=== PATIENT | male | born 1960 ===

== ENCOUNTER 2017-06-08 10:39 | Emergency (ER) | payer OTHER ==
[2017-06-08 10:51] VITALS: BMI 26.6
--- NOTE | 2017-06-08 11:26 | C.PDOC ---
History Of Present Illness 57 yr old male presents to the ER with complaints of chest pain and SOB worsening for the last week. Patient reports he feels like a left sided heaviness. Denies fever, nausea, vomiting, weakness or numbness. Time Seen by Provider: 06/08/17 11:19 Chief Complaint (Nursing): Shortness Of Breath History Per: Patient History/Exam Limitations: no limitations Onset/Duration Of Symptoms: Gradual (last week ) Current Symptoms Are (Timing): Still Present Past Medical History Reviewed: Historical Data, Nursing Documentation, Vital Signs Vital Signs: Last Vital Signs Temp 97.7 F 06/08/17 13:03 Pulse 75 06/08/17 13:03 Resp 16 06/08/17 13:03 BP 127/90 06/08/17 13:03 Pulse Ox 96 06/08/17 13:03 Family History: States: No Known Family Hx - Social History Hx Alcohol Use: No Hx Substance Use: No - Immunization History Hx Tetanus Toxoid Vaccination: No Hx Influenza Vaccination: No Hx Pneumococcal Vaccination: No Review Of Systems Except As Marked, All Systems Reviewed And Found Negative. Constitutional: Negative for: Fever Cardiovascular: Positive for: Chest Pain Respiratory: Positive for: Shortness of Breath Gastrointestinal: Negative for: Nausea, Vomiting Neurological: Negative for: Weakness, Numbness Physical Exam - Physical Exam Appears: Non-toxic, No Acute Distress Skin: Warm, Dry Head: Atraumatic, Normacephalic Eye(s): bilateral: Normal Inspection, PERRL, EOMI Oral Mucosa: Moist Chest: Symmetrical, No Tenderness Cardiovascular: Rhythm Regular, No Murmur Respiratory: Normal Breath Sounds, No Rales, No Rhonchi, No Stridor, No Wheezing Gastrointestinal/Abdominal: Normal Exam, Soft, No Tenderness, No Guarding, No Rebound Extremity: Normal ROM, No Swelling Neurological/Psych: Oriented x3, Normal Speech, Normal Motor ED Course And Treatment - Laboratory Results Result Diagrams: 06/08/17 11:58 06/08/17 11:58 ECG: Interpreted By Me, Viewed By Me ECG Rhythm: Sinus Rhythm ECG Interpretation: Normal Rate From EC (BPM ) O2 Sat by Pulse Oximetry: 100 (RA ) Pulse Ox Interpretation: Normal - Other Rad CXR X-Ray: Viewed By Me, Read By Radiologist Interpretation: PROCEDURE: CHEST RADIOGRAPH, 1 VIEW. HISTORY: chest pain. COMPARISON: No prior study available comparison. FINDINGS: LUNGS: No acute infiltrates. Small approximately 7.7 mm elliptical shaped density right lower lung field overlying the right anterior 6 rib probably and another more vague elliptical shaped density left lower lung field near the CP angle. Findings probably represent nipple shadow artifact however nonemergent CT scan of the chest recommended to confirm and exclude other pathology. PLEURA: No pneumothorax or pleural fluid seen. CARDIOVASCULAR: Normal. OSSEOUS STRUCTURES: No significant abnormalities. VISUALIZED UPPER ABDOMEN: Normal. OTHER FINDINGS: None. IMPRESSION: No acute infiltrates. Small approximately 7.7 mm elliptical shaped density right lower lung field overlying the right anterior 6 rib probably and another more vague elliptical shaped density left lower lung field near the CP angle. Findings could represent confluence of shadows or possibly nipple shadow artifact however nonemergent CT scan of the chest recommended to confirm and exclude other pathology. Note this report was placed in PA review folder followup Medical Decision Making Medical Decision Making: cp r/o acs PLAN: * CXR * EKG * Troponin * D-Dimer * CBC * CMP * * 1250: pt reassesed. states all symptoms resolved. requested pt be obs in hospital for cp. pt refuses, states "i need to go home". ekg unremarkable. trop neg x 1 with 1 week of pain. pt states prefers outpt management. return precautions advised. pt notified of incidental finding on ct Disposition - Disposition Referrals: Lars Pelaez MD [Staff Provider] - Disposition: HOME/ ROUTINE Disposition Time: 13:16 Condition: STABLE Additional Instructions: please follow up with your doctor/specialist. return ot er with worsening symptoms or concerns please discuss the results of your chest xray michael resendez doctor you may require a ct of your chest Instructions: Chest Pain (ED), Dyspnea (ED) - Clinical Impression Clinical Impression: Dyspnea, Chest pain - Scribe Statement The provider has reviewed the documentation as recorded by the Socorroibandrey Jaramillo Provider Attestation: All medical record entries made by the Socorroibandrey were at my direction and personally dictated by me. I have reviewed the chart and agree that the record accurately reflects my personal performance of the history, physical exam, medical decision making, and the department course for this patient. I have also personally directed, reviewed, and agree with the discharge instructions and disposition.
[2017-06-08 12:02] LABS: BASO % 0.4 % (0.0-2.0); EOS # 0.1 K/uL (0.0-0.7); EOS % 1.8 % (0.0-4.0); LYMPH # 1.6 K/uL (1.0-4.3); LYMPH % 28.7 % (20.0-40.0); MEAN CELL VOLUME 92.1 fL (80.0-94.0); MEAN CORPUSCULAR HGB CONC 33.7 g/dL (33.0-37.0); MEAN PLATELET VOLUME 8.3 fL (7.2-11.7); MONO # 0.6 K/uL (0.0-0.8); MONO % 10.3 % (0.0-10.0); NEUT # 3.3 K/uL (1.8-7.0); NEUT % 58.8 % (50.0-75.0); RBC 4.84 Mil/uL (4.40-5.90); RED CELL DISTRIBUTION WIDTH 12.7 % (11.5-14.5); WHITE BLOOD COUNT 5.7 K/uL (4.8-10.8)
[2017-06-08 12:10] LABS: ALBUMIN 4.4 g/dL (3.5-5.0)
[2017-06-08 12:13] LABS: ALB/GLOB RATIO 1.2 (1.0-2.1); AST/SGOT 23 U/L (17-59); GFR AFRICAN-AMERICAN > 60; GFR NON-AFRICAN AMERICAN > 60
[2017-06-08 12:14] LABS: ALT/SGPT 30 U/L (21-72); BLOOD UREA NITROGEN 7 mg/dL (9-20); CALCIUM 8.9 mg/dl (8.6-10.4)
--- NOTE | 2017-06-08 12:20 | RAD ---
PROCEDURE: CHEST RADIOGRAPH, 1 VIEW HISTORY: chest pain COMPARISON: No prior study available comparison FINDINGS: LUNGS: No acute infiltrates. Small approximately 7.7 mm elliptical shaped density right lower lung field overlying the right anterior 6 rib probably and another more vague elliptical shaped density left lower lung field near the CP angle. Findings probably represent nipple shadow artifact however nonemergent CT scan of the chest recommended to confirm and exclude other pathology. PLEURA: No pneumothorax or pleural fluid seen. CARDIOVASCULAR: Normal. OSSEOUS STRUCTURES: No significant abnormalities. VISUALIZED UPPER ABDOMEN: Normal. OTHER FINDINGS: None. IMPRESSION: No acute infiltrates. Small approximately 7.7 mm elliptical shaped density right lower lung field overlying the right anterior 6 rib probably and another more vague elliptical shaped density left lower lung field near the CP angle. Findings could represent confluence of shadows or possibly nipple shadow artifact however nonemergent CT scan of the chest recommended to confirm and exclude other pathology. Note this report was placed in PA review folder followup
[2017-06-08 12:21] LABS: B-TYPE NATRIURETIC PEPTIDE < 11.1 pg/mL (0-900)
[2017-06-08 12:24] LABS: PARTIAL THROMBOPLASTIN TIME 30 SECONDS (21-34); PROTHROMBIN TIME 11.8 SECONDS (9.7-12.2)
[2017-06-08 12:25] LABS: D DIMER < 200 ng/mlDDU (0-243)
[2017-06-08 13:04] VITALS: BP 127/90; PULSE 75; RESP 16; TEMP 97.7
[2017-06-08 13:17] VITALS: O2SAT 100
--- NOTE | 2017-06-11 12:03 | CARD ---
APPROVED REPORT EKG Measurement Heart [id number] <Conclusion> Normal sinus rhythm Normal ECG
== END 2017-06-08 13:22 | disposition home or self-care (01) ==
LOC: C.ER 10:39
DX: R07.89 Other chest pain (principal); R06.00 Dyspnea, unspecified

== ENCOUNTER 2017-06-13 11:37 | Emergency (ER) | payer OTHER ==
[2017-06-13 11:37] VITALS: BMI 26.6
[2017-06-13 11:47] VITALS: RESP 20
[2017-06-13] MEDS ORDERED: Albuterol 0.083% Inhal Sol (2.5 mg/3 mL) UD INH STA (12:08)
--- NOTE | 2017-06-13 12:24 | C.PDOC ---
History Of Present Illness 57-year-old male, denies significant PMHx, presents to the emergency department with complaints of shortness of breath for the past week. Patient states his nose feels congested, and he is unable to breathe through it. He notes that his heart is racing, and he has intermittent chest tightness. Denies any fevers, cough, back pain, dizziness, or any other associated symptoms. No other complaints at this time. Of note, patient is pending an appointment with Dr Pelaez tomorrow. Time Seen by Provider: 06/13/17 11:51 Chief Complaint (Nursing): Shortness Of Breath History Per: Patient History/Exam Limitations: no limitations Onset/Duration Of Symptoms: Days Current Symptoms Are (Timing): Still Present Past Medical History Reviewed: Historical Data, Nursing Documentation, Vital Signs Vital Signs: Last Vital Signs Temp 97.4 F L 06/13/17 13:40 Pulse 70 06/13/17 13:40 Resp 20 06/13/17 13:40 BP 124/83 06/13/17 13:40 Pulse Ox 95 06/13/17 13:43 Family History: States: No Known Family Hx - Social History Hx Alcohol Use: No Hx Substance Use: No - Immunization History Hx Tetanus Toxoid Vaccination: No Hx Influenza Vaccination: No Hx Pneumococcal Vaccination: No Review Of Systems Except As Marked, All Systems Reviewed And Found Negative. Constitutional: Negative for: Fever, Chills ENT: Positive for: Nose Congestion Cardiovascular: Positive for: Chest Pain. Negative for: Palpitations Gastrointestinal: Negative for: Nausea, Vomiting Musculoskeletal: Negative for: Back Pain Neurological: Negative for: Weakness, Numbness Physical Exam - Physical Exam Appears: Non-toxic, No Acute Distress Skin: Warm, Dry, No Rash Head: Atraumatic, Normacephalic Eye(s): bilateral: Normal Inspection, PERRL, EOMI Nose: Other (congestion) Oral Mucosa: Moist Lips: Normal Appearing Neck: Normal ROM Cardiovascular: Rhythm Regular Respiratory: Normal Breath Sounds, No Accessory Muscle Use Gastrointestinal/Abdominal: Soft, No Tenderness Extremity: Normal ROM, No Tenderness, No Pedal Edema Neurological/Psych: Oriented x3, Normal Speech ED Course And Treatment - Laboratory Results Result Diagrams: 06/13/17 12:47 06/13/17 12:47 ECG: Interpreted By Me, Viewed By Me ECG Rhythm: Sinus Rhythm ECG Interpretation: No Acute Changes Rate From EC O2 Sat by Pulse Oximetry: 95 (on RA) Pulse Ox Interpretation: Normal Medical Decision Making Medical Decision Making: Impression 57y/o M, comes in for nasal congestion and intermittent chest tightness x1 week Diff Dx (includes but not limited to) SOB secondary to reactive airway disease vs URI vs Cardiac etiology Prior Visits Notes and records from previous visits were reviewed. Patient was seen in ED on 06/08/17 for same complaint. Plan: * EKG * CMP, Trop I * CBC, D Dimer, PTT, PT * Chest X-Ray * Albuterol, Sudafed * Peak Flow * Reassess and Disposition Troponin and dimer negative. Low risk and pain symptoms for over a week. Patient felt better after medications given in ED. Nose felt less congested. His breathing felt more clear and breathe were easier. No chest pain. He has an appointment with PMD tomorrow. He will return to the ED if symptoms worsen or any other concern. Disposition Counseled Patient/Family Regarding: Studies Performed, Diagnosis, Need For Followup, Rx Given - Disposition Referrals: Lars Pelaez MD [Staff Provider] - Disposition: HOME/ ROUTINE Disposition Time: 13:43 Condition: IMPROVED Additional Instructions: Mr Huerta, thank you for letting us take care of you today. Your provider was Dr. Liu. You were treated for Upper Respiratory Infection / Allergies. The emergency medical care you received today was directed at your acute symptoms. If you were prescribed any medication, please fill it and take as directed. It may take several days for your symptoms to resolve. Return to the Emergency Department if your symptoms worsen, do not improve, or if you have any other problems. Please contact your doctor or call one of the physicians/clinics you have been referred to that are listed on the Patient Visit Information form that is included in your discharge packet. Bring any paperwork you were given at discharge with you along with any medications you are taking to your follow up visit. Our treatment cannot replace ongoing medical care by a primary care provider (PCP) outside of the emergency department. Thank you for allowing the [facility] team to be part of your care today. If you had an X-Ray or CT scan: A Radiologist will review the ED reading if any change in treatment is needed we will contact you. If you had a blood, urine, or wound culture: It will take several days for the results, if any change in treatment is needed we will contact you. If you had an STI test: It will take 48 hours for the results. Please call after 1 week if you have not heard back. Prescriptions: Albuterol HFA [Ventolin HFA 90 mcg/actuation (8 g)] 2 puff IH Q4 #1 puff Guaifenesin/Pseudoephedrne HCl [Mucinex D ER Tablet] 1 each PO Q12 PRN #15 [id number] PRN Reason: Nasal Congestion Instructions: Upper Respiratory Infection (ED) Forms: Gen Discharge Inst Armenian - POA Present On Arrival: None - Clinical Impression Clinical Impression: URI, acute, Seasonal allergies - Scribe Statement The provider has reviewed the documentation as recorded by the Scribe (Jasmeet Yan) All medical record entries made by the Scribe were at my direction and personally dictated by me. I have reviewed the chart and agree that the record accurately reflects my personal performance of the history, physical exam, medical decision making, and the department course for this patient. I have also personally directed, reviewed, and agree with the discharge instructions and disposition.
--- NOTE | 2017-06-13 12:35 | RAD ---
PROCEDURE: CHEST RADIOGRAPH, 1 VIEW HISTORY: Chest pain COMPARISON: 06/08/2017 FINDINGS: LUNGS: The lungs are well inflated and clear. PLEURA: No pneumothorax or pleural fluid seen. CARDIOVASCULAR: Normal. OSSEOUS STRUCTURES: No significant abnormalities. VISUALIZED UPPER ABDOMEN: Normal. OTHER FINDINGS: None. IMPRESSION: No active pulmonary disease.
[2017-06-13] MEDS ORDERED: Albuterol 0.083% Inhal Sol (2.5 mg/3 mL) UD ONE (12:37)
[2017-06-13 12:58] LABS: BASO % 0.6 % (0.0-2.0); EOS % 0.7 % (0.0-4.0); HEMOGLOBIN 14.3 g/dL (12.0-18.0); LYMPH # 1.9 K/uL (1.0-4.3); LYMPH % 31.8 % (20.0-40.0); MEAN CELL VOLUME 91.3 fL (80.0-94.0); MEAN CORPUSCULAR HEMOGLOBIN 30.9 pg (27.0-31.0); MEAN CORPUSCULAR HGB CONC 33.9 g/dL (33.0-37.0); MEAN PLATELET VOLUME 8.7 fL (7.2-11.7); MONO # 0.5 K/uL (0.0-0.8); MONO % 8.8 % (0.0-10.0); NEUT # 3.5 K/uL (1.8-7.0); NEUT % 58.1 % (50.0-75.0); NRBC % 0.1 % (0.0-2.0); RBC 4.64 Mil/uL (4.40-5.90); RED CELL DISTRIBUTION WIDTH 12.4 % (11.5-14.5)
[2017-06-13 13:12] LABS: INR 1.1; PARTIAL THROMBOPLASTIN TIME 30 SECONDS (21-34); PROTHROMBIN TIME 12.5 SECONDS (9.7-12.2)
[2017-06-13 13:14] LABS: ALBUMIN 4.1 g/dL (3.5-5.0)
[2017-06-13 13:17] LABS: GFR AFRICAN-AMERICAN > 60; GFR NON-AFRICAN AMERICAN > 60
[2017-06-13 13:18] LABS: ALB/GLOB RATIO 1.1 (1.0-2.1); ALT/SGPT 27 U/L (21-72); AST/SGOT 22 U/L (17-59); BLOOD UREA NITROGEN 10 mg/dL (9-20)
[2017-06-13 13:22] LABS: D DIMER < 200 ng/mlDDU (0-243)
[2017-06-13] MEDS ORDERED: Potassium Chloride 20 mEq ER Tab PO STA (13:24)
[2017-06-13] MEDS ORDERED: Potassium Chloride 20 mEq ER Tab PO ONE ×2 (13:33→13:39)
[2017-06-13 13:41] VITALS: BP 124/83; PULSE 70; TEMP 97.4
[2017-06-13 13:43] VITALS: O2SAT 95
--- NOTE | 2017-06-14 12:17 | CARD ---
APPROVED REPORT EKG Measurement Heart [id number] <Conclusion> Normal sinus rhythm Normal ECG
== END 2017-06-13 13:50 | disposition home or self-care (01) ==
LOC: C.ER 11:37
DX: J06.9 Acute upper respiratory infection, unspecified (principal); J30.2 Other seasonal allergic rhinitis; E87.6 Hypokalemia